=== PATIENT | male | born 1945 | race Caucasian/White ===

== ENCOUNTER → 2021-12-10 | Outpatient (CLI) | payer MEDICARE, OTHER ==
--- NOTE | 2021-12-10 17:34 | RAD ---
Exam: Right lower extremity venous duplex study INDICATION: Leg swelling TECHNIQUE: Using a combination of real-time ultrasound imaging and color-flow and pulse Doppler imagi ng techniques along with graded compression and augmentation, duplex evaluation of the deep venous sy stems of rightlower extremity was performed. Multiple images were obtained. Findings: Nonocclusive thrombus in the right popliteal vein. Otherwise, There is no sonographic evidence for deep venous thrombosis involving the visualized deep venous structures of the right lower extremity. IMPRESSION: Nonocclusive thrombus in the right popliteal vein. Findings were discussed with Marva JACOBS by the department heel finisher at 4:15 PM Electronically signed by: Joseph Brown MD (12/10/2021 5:32 PM) [facility]
== END ==
LOC: US 16:17
PROVIDERS: ATTEND Internal Medicine
DX: I82.431 Acute embolism and thrombosis of right popliteal vein (principal); Z98.890 Other specified postprocedural states
CPT/HCPCS: 93971